=== PATIENT | female | born 1955 | race Caucasian/White ===

== ENCOUNTER 2018-05-28 19:40 | Emergency (ER) | payer MEDICAID ==
[2018-05-28] MEDS: HYDROCODONE/APAP (5/325) TAB PO (22:05)
[2018-05-28] MEDS: LIDOCAINE 5% PATCH TD (22:34)
== END 2018-05-28 22:36 | disposition home or self-care (01) ==
LOC: FTE 19:40
DX: S39.012A Strain of muscle, fascia and tendon of lower back, initial encounter (principal); R40.2412 Glasgow coma scale score 13-15, at arrival to emergency department; W01.0XXA Fall on same level from slipping, tripping and stumbling without subsequent striking against object, initial encounter; Y92.9 Unspecified place or not applicable
CPT/HCPCS: 99283; Z7502